=== PATIENT | female | born 1990 | race Caucasian/White ===

== ENCOUNTER 2020-04-06 10:11 | Inpatient (IN) | payer OTHER ==
[~2020-04-06 10:11] MED LIST: Bupivacaine 0.25% HCL 30 ML VIAL ONE
[2020-04-06 11:01] VITALS: BMI 29.0
[2020-04-06] MEDS ORDERED: Penicillin G Potassium 5 MILL.UNITS VIAL ONE (11:11)
[2020-04-06] MEDS ORDERED: Acetaminophen 500 MG TAB PO PRN (11:15)
[2020-04-06] MEDS ORDERED: Lidocaine 1% (PF) 30 ML VIAL SC PRN (11:15)
[2020-04-06] MEDS ORDERED: Ondansetron PF 4 MG/2 ML Vial IVP PRN ×2 (11:15→15:40)
[2020-04-06] MEDS ORDERED: Penicillin G 2.5 MILL.units 2.5 MILL.UNITS in Premix Bag 1 BAG IVPB SCH (11:15)
[2020-04-06] MEDS ORDERED: Meperidine HCl/PF 25 MG/ML VIAL IM/IV PRN (11:15)
[2020-04-06] MEDS ORDERED: Carboprost 250 MCG/ML AMP IM PRN (11:15)
[2020-04-06] MEDS ORDERED: HYDROcodone/Acetaminophen 5/325 mg Tablet PO PRN ×2 (11:15→18:06)
[2020-04-06] MEDS ORDERED: Promethazine HCl 25 MG/ML VIAL IM PRN ×2 (11:15→15:40)
[2020-04-06] MEDS ORDERED: Methylergonovine 0.2 MG/ML VIAL IM PRN (11:15)
[2020-04-06] MEDS ORDERED: Lactated Ringer's 1,000 ML IV SCH (11:15)
[2020-04-06] MEDS ORDERED: Misoprostol 200 MCG TAB PR PRN (11:15)
[2020-04-06] MEDS ORDERED: hydrALAZINE 20 MG/ML VIAL SLOW IVP PRN ×2 (11:15→18:06)
[2020-04-06] MEDS ORDERED: Penicillin G Potassium 5 MILL.UNITS in Sodium Chloride 0.9% 100 ML IVPB SCH (11:15)
[2020-04-06] MEDS ORDERED: Ibuprofen 800 MG TAB PO PRN (11:15)
[2020-04-06] MEDS ORDERED: NS / Oxytocin 40 units/1000ml 1,000 ML IV PRN (11:15)
[2020-04-06] MEDS ORDERED: Butorphanol Tartrate 1 MG/ML VIAL SLOW IVP PRN (11:15)
--- NOTE | 2020-04-06 11:19 | PDOC.LDHP ---
Labor and Delivery H&P Chief complaint: contractions HPI: Had some blood tinged discharge last night. Contractions started about 5am. Getting longer, stronger, about 8 minutes apart. GBS positive. Baby moving well still. Current gestational age (weeks): 40 Due date: 04/01/20 Dating criteria: last menstrual period, first trimester ultrasound Grav: 4 Para: 3 Current complications: other (Rh negative, refused rhogam during ) Abnormal US findings: No Current medications: pre- vitamins Previous surgical history: none Allergies/Adverse Reactions: Allergies Allergy/AdvReac Type Severity Reaction Status Date / Time No Known Allergies Allergy Unverified 04/06/20 15:22 Social history: none - Physical Exam Vital signs reviewed and normal: yes General: NAD, resting, breathing through contractions, other Heart: RRR Lungs: CTAB Abdomen: gravid Extremeties: no edema FHT: category 1, variability present - Vaginal Exam cm dilated: 5 Effacement: 75% Station: -1 - OB Labs Blood type: A RH: negative Antibody Screen: negative HIV: negative RPR: negative HEPSAg: negative 1 hour GCT: negative GBS: positive Urine drug screen: not done Rubella: immune - Assessment L&D Assessment: term patient in labor - Plan Plan: admit to L&D, GBS antibiotic prophylaxis, informed consent obtained, anesthesia consult for pain management
[2020-04-06 11:41] LABS: Hemoglobin 12.7 g/dL (12.0-16.0); Mean Corpuscular HGB CONC 33.8 g/dL (32.0-36.0); Mean Corpuscular Hemoglobin 28.6 pg (27.0-31.0); Mean Corpuscular Volume 84.5 fL (78.0-98.0); Platelet Count 137 thou/uL (130-400); RBC Distribution Width 12.5 % (11.5-14.5); Red Blood Cell (RBC) Count 4.43 mill/uL (4.20-5.40)
[2020-04-06 12:24] LABS: Syphilis Antibody Nonreactive (Nonreactive)
[2020-04-06 12:25] LABS: HBSAg Index 0.16 S/CO (0-0.99); Hep B Surf Ag Non-Reactive S/CO (NonReactive)
[2020-04-06] MEDS ORDERED: Fentanyl 4 mcg/Bup 0.1% Cadd 100 ML ONE (14:26)
[2020-04-06] MEDS ORDERED: EPHEDRINE 25 MG/5 ML SYRINGE SLOW IVP PRN (15:40)
[2020-04-06] MEDS ORDERED: Naloxone HCl 0.4 mg/ml Vial IVP PRN ×2 (15:40)
[2020-04-06] MEDS ORDERED: Acetaminophen 325 MG TAB PO PRN (15:40)
[2020-04-06] MEDS ORDERED: Lactated Ringer's 500 ML IV PRN (15:40)
[2020-04-06] MEDS ORDERED: diphenhydrAMINE 50 MG/ML VIAL IVP PRN (15:40)
[2020-04-06] MEDS ORDERED: Penicillin G 2.5 MILL.units 50 ML ONE (15:43)
[2020-04-06] MEDS ORDERED: Communication Order-Pharmacy FS SCH (15:45)
[2020-04-06] MEDS ORDERED: Fentanyl 4 mcg/Bupivacaine 0.1% Cassette 100 ML EPIDURAL SCH (15:45)
--- NOTE | 2020-04-06 17:49 | PDOC.OPDEL ---
OB Operative/Delivery Note Delivery Dr/Surgeon: Nathan Pre-Delivery Diagnosis: active labor Procedure/Post Delivery Dx: spontaneous vaginal delivery (Head OA, loose nuchal cord reduced prior to shoulders, shoulders and body easily followed, placed on mother's abdomen) Weeks gestation: 40 Anesthesia: epidural - Findings A Sex: female - 1 min: 9 - 5 min: 9 - Additional Findings/Plan Placenta delivered: spontaneous (Intact, 3 vessel cord, pitocin started after the baby) Repaired Obstetrical Laceration: 1st degree (repaired with 3.0 vicryl under epidural anesthesia) Estimated blood loss: 375 Post delivery plan: routine recovery
[2020-04-06] MEDS ORDERED: Milk Of Magnesia 30 ML UDCUP PO PRN (18:06)
[2020-04-06] MEDS ORDERED: Bisacodyl 10 MG SUPP PR PRN (18:06)
[2020-04-06] MEDS ORDERED: NS / Oxytocin 40 units/1000ml 1,000 ML IV SCH (18:06)
[2020-04-06] MEDS ORDERED: Lanolin Ointment 7 GM TUBE TOP PRN (18:06)
[2020-04-06] MEDS: Docusate Calcium (SURFAK) 240 MG CAP PO SCH (21:30)
[2020-04-07] MEDS: Ibuprofen 800 MG TAB PO SCH ×3 (01:35→17:47)
--- NOTE | 2020-04-07 07:11 | PDOC.PP ---
Post Progress Note Post Day #: 1 Subjective: Feeling well. No complaints. Was with a shield but c/o nipple pain so gave formula overnight. She bottle fed her other babies. PO intake tolerated: yes Flatus: yes Ambulation: yes Vital Signs (12 hours) Temp Pulse Resp BP BP Pulse Ox 04/07/20 05:00 97.8 F 83 18 94/54 L 04/07/20 01:10 97.6 F 88 18 101/66 04/06/20 21:20 98.6 F 106 H 18 111/60 04/06/20 20:30 98.7 F 96 18 114/68 100 Weight Weight 180 lb - Physical Examination General: NAD Cardiovascular: no m/r/g, RRR Respiratory: clear to auscultation bilaterally, non-labored breathing Abdominal: + bowel sounds, lochia, no distention, appropriately TTP Extremities: negative homans (B) Neurological: no gross focal deficits Result Diagrams: 04/06/20 11:28 Additional Labs: Post Labs Hep Bs Antigen Non-Reactive S/CO (NonReactive) 04/06/20 11:28 Blood Type A NEGATIVE 04/06/20 12:06 (1) Vaginal delivery Code(s): O80 - ENCOUNTER FOR FULL-TERM UNCOMPLICATED DELIVERY Status: Acute - Assessment/Plan Routine PP care D/C home later today if continues to do well F/U in 6 weeks with me
[2020-04-07] MEDS: Docusate Calcium (SURFAK) 240 MG CAP PO SCH (09:08)
[2020-04-07] MEDS: Ferrous Sulfate 325 MG TAB PO SCH ×2 (09:09→18:00)
[2020-04-07] MEDS ORDERED: Sodium Chloride 0.9% 10 ML ONE (09:54)
[2020-04-07 17:29] VITALS: BP 115/74; TEMP 98.2
== END 2020-04-07 19:25 | disposition home or self-care (01) | DRG 807 ==
LOC: L&D/OP 10:11 → L&D 12:05 → 3SW 21:27
PROVIDERS: ADMIT Family Medicine; ATTEND Family Medicine
PROC: 10E0XZZ Delivery of Products of Conception, External Approach (ICD-10-PCS; principal; 2020-04-06)
PROC: 0HQ9XZZ Repair Perineum Skin, External Approach (ICD-10-PCS; 2020-04-06)
DX: O48.0 Post-term pregnancy (principal); Z37.0 Single live birth; O99.824 Streptococcus B carrier state complicating childbirth; O70.0 First degree perineal laceration during delivery; O69.81X0 Labor and delivery complicated by cord around neck, without compression, not applicable or unspecified; Z3A.40 40 weeks gestation of pregnancy
CPT/HCPCS: 36415; 85027; 85461; 86780; 86850; 86900; 86901; 87340; 90384; 96372; J2540; S0020